=== PATIENT | male | born 1955 | race Caucasian/White ===

== ENCOUNTER 2016-09-09 19:11 | Emergency (ER) | payer BC, OTHER ==
[~2016-09-09] VITALS: Ht 172.7 cm; Wt 120.2 kg
--- OUTSIDE RECORDS SUMMARY | 2016-09-09 19:18 | XMS REPORT | Clinical Summary ---
Author Author Admin, LELE Organization [facility] Address Unknown Phone Unavailable Allergies, Adverse Reactions, Alerts Allergy Name Reaction Description Start Date Severity Status Provider No Known Allergies Tangela Stevens Conditions or Problems Problem Name Problem Code Onset Date Status Entry Date Provider Comment Standard Description Annotate INGUINAL HERNIA, RIGHT 550.90 Active Caprice Vaughn MD Unilateral or unspecified inguinal hernia, without mention of obstruction or gangrene (not specified as recurrent) Peyronie's Disease 607.89 Active Caprice Vaughn MD Other specified disorders of penis Medication List Medication Instructions Start Date Stop Date Generic Name NDC Status Provider Patient Instruction ADULT ASPIRIN EC LOW STRENGTH 81 MG TBEC daily ASPIRIN 10960337344 Active Caprice Vaughn MD Active LIPITOR 10 MG TABS daily ATORVASTATIN CALCIUM 16042944128 Active Caprice Vaughn MD Active PRILOSEC 40 MG CPDR daily OMEPRAZOLE 67270962647 Active Caprice Vaughn MD Active Advance Directives Directive Description Start Date PERMISSION TO SHARE Vital Signs Date Name Value Unit Range Description blood pressure, diastolic - 8462-4 78 mm[Hg] BP munoz blood pressure, systolic - 8480-6 144 mm[Hg] BP sys height E&M - 8302-2 68 [in_us] Bdy height pulse rate E&M - 8867-4 60 /min Heart rate weight E&M - 3141-9 253 [lb_av] Weight Measured Encounters Code Encounter Date Provider Facility [id number] Level 4 New Patient 19:54:12 CDT Caprice Vaughn MD [facility] Procedures Code Procedure Name Date Entry Date Standard Description [id number] Sono scrotum and contents 16:09:11 CDT
[2016-09-09] MEDS ORDERED: OMEP20TA33 PO (19:25)
[2016-09-09] MEDS ORDERED: ATOR10TA PO (19:25)
[2016-09-09] MEDS ORDERED: TETRACAINE 0.5% OPHTH SOLN 5 ML BTL OU STA (19:36)
[2016-09-09] MEDS ORDERED: RX-TRAMADOL 50 MG (ULTRAM) TAB PPK#4 PO STA (19:36)
[2016-09-09] MEDS ORDERED: RX-GENTAMICIN 0.3% OP OINT 3.5 GM TUBE OP STA (19:36)
--- NOTE | 2016-09-09 19:40 | ED EENT ---
History of Present Illness General Chief Complaint: Eye Problems Stated Complaint: RIGHT EYE INJ Nursing Triage Note: possible fb in right eye Source: patient Exam Limitations: no limitations History of Present Illness Time seen by provider: 19:36 Initial Comments To ER with a foreign body sensation in the right eye since yesterday evening after washing his face. 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 He is from [facility]. He is unsure what may be in his eye. Tetanus is up-to-date. Timing/Duration: abrupt Severity: mild Location: eye (R) Prearrival Treatment: no prearrival treatment Allergies and Home Medications Allergies Coded Allergies: No Known Drug Allergies (Unverified , 09/09/16) Home Medications Atorvastatin Calcium 10 Mg Tablet Unknown Dose PO UD (Reported) Omeprazole Magnesium 20 Mg Tablet.dr 20 MG PO UD (Reported) Review of Systems Constitutional: see HPI Eyes: See HPI Ears: No Symptoms Reported Nose: no symptoms reported Mouth: no symptoms reported Throat: no symptoms reported Respiratory: no symptoms reported Cardiovascular: no symptoms reported Musculoskeletal: no symptoms reported Past Dpgjmxy-Rwanpp-Fozeqs Hx Patient Social History Alcohol Use: Denies Use Recreational Drug Use: No Smoking Status: Never a Smoker 2nd Hand Smoke Exposure: No Recent Foreign Travel: No Contact w/Someone Who Travel: No Recent Infectious Disease Expo: No Recent Hopitalizations: No Immunizations Up To Date Tetanus Booster (TDap): Less than 5yrs Seasonal Allergies Seasonal Allergies: Yes Surgeries HX Surgeries: Yes (bilateral shoulder) Surgeries: Cardiac, Orthopedic Respiratory Hx Respiratory Disorders: No Cardiovascular Hx Cardiac Disorders: Yes Cardiac Disorders: High Cholesterol, Hypertension Neurological Hx Neurological Disorders: Yes Neurological Disorders: TIA Reproductive System Hx Reproductive Disorders: No Genitourinary Hx Genitourinary Disorders: No Gastrointestinal Hx Gastrointestinal Disorders: No Musculoskeletal Hx Musculoskeletal Disorders: No Endocrine Hx Endocrine Disorders: No HEENT HX ENT Disorders: No Cancer Hx Cancer: No Psychosocial Hx Psychiatric Problems: No Integumentary HX Skin/Integumentary Disorder: No Blood Transfusions Hx Blood Disorders: No Physical Exam Vital Signs Vital Sign - Last 12Hours 09/09/16 19:12 Temp 97.1 Pulse 72 Resp 16 B/P 172/107 Pulse Ox 95 O2 Delivery Room Air General Appearance: WD/WN no apparent distress Eyes: right eye other (There is a small less than 1 mm speck of foreign body within the cornea just inside the limbus at the 5 o'clock position that is dark in color. There is no hyphema or hypopyon. This was easily removed with the Ophtho-bur after using topical tetracaine. No evidence of iritis), bilateral eye EOMI, bilateral eye PERRL, bilateral eye normal inspection Ears: bilateral ear TM normal, bilateral ear auricle normal, bilateral ear canal normal Nose: normal inspection active bleeding Neck: non-tender full range of motion Respiratory: normal breath sounds no respiratory distress no accessory muscle use Gastrointestinal: non tender soft Neurologic/Psychiatric: alert normal mood/affect oriented x 3 Skin: normal color warm/dry Progress/Results/Core Measures Results/Orders Vital Signs/I&O Vital Sign - Last 12Hours 09/09/16 19:12 Temp 97.1 Pulse 72 Resp 16 B/P 172/107 Pulse Ox 95 O2 Delivery Room Air Blood Pressure Mean: 128 Departure Impression Impression: Primary Impression: Corneal foreign body Qualified Code: T15.01XA - Foreign body in cornea, right eye, initial encounter Disposition: HOME, SELF-CARE Condition: Stable Departure-Patient Inst. Decision time for Depature: 19:39 Referrals: NO,LOCAL PHYSICIAN (PCP) Primary Care Physician Patient Instructions: Corneal Abrasion Add. Discharge Instructions: 1. Apply the antibiotic ointment 3 times daily 1/2 inch strip just inside the lower eyelid for the next 3 days 2. Use the pain medication tonight as needed to help with sleeping as this I may cause you some discomfort 3. Follow-up with your eye doctor later this week or next week. Return to ER for any concerns. All discharge instructions reviewed with patient and/or family. Voiced understanding. DWAYNE FLORES APRN Sep 09, 2016 19:39
[2016-09-09] MEDS ORDERED: BSS 15 ML IR ONE (19:45)
[2016-09-09] MEDS ORDERED: FLUORESCEIN (FLUOR-I-STRIPS) 1 MG STRP OU ONE (19:45)
[2016-09-09 19:53] VITALS: BP 142/89
== END 2016-09-09 19:52 | disposition home or self-care (01) ==
LOC: ER 19:14
DX: T15.01XA Foreign body in cornea, right eye, initial encounter (principal); Y92.59 Other trade areas as the place of occurrence of the external cause
CPT/HCPCS: 99283